=== PATIENT | male | born 1975 | race Caucasian/White ===

== ENCOUNTER → 2018-07-05 09:37 | Outpatient (CLI) | payer SELFPAY ==
[2018-07-05 12:22] LABS: Volume Semen 1.5 (1.0-5.0)
[2018-07-05 12:23] LABS: Liquefaction Semen YES (YES); PH Semen 8.5 (7-8); Sperm Count 5 x10^6/mL (20-150); Sperm Morphology 38 %ABNORM (0-30); Sperm Motility 70% % Motile
== END ==
DX: N46.8 Other male infertility (principal)
CPT/HCPCS: 89320